=== PATIENT | female | born 1990 | race Caucasian/White ===

== ENCOUNTER 2020-02-29 01:12 | Emergency (ER) | payer OTHER ==
--- NOTE | 2020-02-29 01:13 | NUR ---
CALLED FOR TRIAGE, NO ANSWER.
--- NOTE | 2020-02-29 01:18 | NUR ---
CALLED FOR TRIAGE, NO ANSWER. WAS TOLD BY PEOPLE IN THE WAITING ROOM THAT PT LEFT RIGHT AFTER SHE TURNED HER CLIPBOARD IN.
--- NOTE | 2020-02-29 01:54 | NUR ---
CALLED PT TO BE TRIAGED 3X, NOT IN WAITING ROOM
== END 2020-02-29 01:56 | disposition left against medical advice (07) ==
LOC: ER 01:18
DX: Z53.21 Procedure and treatment not carried out due to patient leaving prior to being seen by health care provider (principal)